=== PATIENT | male | born 1995 | race Caucasian/White ===

== ENCOUNTER → 2022-06-16 | Outpatient (CLI) | payer OTHER, SELFPAY ==
--- NOTE | 2022-06-16 16:00 | RAD_ITS ---
STUDY: X-RAY - LEFT KNEE REASON FOR EXAM: Male, 27 years old. Left Knee Pain TECHNIQUE: 4 view(s) of the knee. COMPARISON: None. FINDINGS: Normal visualized distal femur. Normal visualized proximal tibia and fibula. Normal proximal tibiofibular articulation. Normal medial femorotibial compartment. Normal lateral femorotibial compartment. Normal patellofemoral articulation. The soft tissue structures are unremarkable. RAD/Knee 4 or More Views IMPRESSION: Normal x-ray examination of the knee. Electronically Signed: Damir Parks MD, SHEELA at 8:08 EDT ,
== END | disposition home or self-care (01) ==
PROVIDERS: PCP Internal Medicine; Referring Provider Internal Medicine; Visit Provider Internal Medicine
DX: M25.562 Pain in left knee (principal)
CPT/HCPCS: 73564

== ENCOUNTER → 2022-07-12 | Outpatient (CLI) | payer OTHER, SELFPAY ==
--- NOTE | 2022-07-12 09:25 | MRI_ITS ---
EXAM: MR LEFT LOWER EXTREMITY WITHOUT INTRAVENOUS CONTRAST, KNEE CLINICAL INDICATION: rule out MM tear TECHNIQUE: Multiplanar and multisequence MR images of the left knee without intravenous contrast. This report was created using [employer] report generation technology. COMPARISON: X-ray 06/16/2022. FINDINGS: BONES/JOINTS: No fracture. No abnormal bone marrow signal. No synovial hypertrophy. No intra-articular body. EXTENSOR MECHANISM: Unremarkable. MEDIAL MENISCUS: Unremarkable. LATERAL MENISCUS: Unremarkable. MEDIAL CAPSULE/SUPPORTING STRUCTURES: Unremarkable. Intact. LATERAL CAPSULE/SUPPORTING STRUCTURES: Unremarkable. Intact. ANTERIOR CRUCIATE LIGAMENT: Unremarkable. Intact. POSTERIOR CRUCIATE LIGAMENT: Unremarkable. Intact. MUSCLES: Unremarkable. CARTILAGE: Fissuring of the medial femoral cartilage, best demonstrated on series 5 image 8. Cartilage is otherwise unremarkable. FLUID: Small joint effusion. OTHER SOFT TISSUES: Unremarkable. No popliteal cyst. MRI/Lower Ext Joint Only (Routine) IMPRESSION: 1. Small joint effusion. 2. Fissuring of the medial femoral cartilage. Electronically Signed: Gretchen Ojeda MD at 19:57 EDT Reading Location ID and State: [id number] / Tel , Service support ,
== END | disposition home or self-care (01) ==
LOC: MRI 09:24
PROVIDERS: PCP Internal Medicine; Referring Provider Orthopaedic Surgery Sports Medicine; Visit Provider Orthopaedic Surgery Sports Medicine
DX: S83.242A Other tear of medial meniscus, current injury, left knee, initial encounter (principal)
CPT/HCPCS: 73721

== ENCOUNTER 2022-07-28 15:19 | Outpatient (CLI) | payer OTHER, SELFPAY ==
[2022-07-28 16:51] LABS: ALB/GLOB Ratio 1.2 RATIO (0.9-2.4); AST(SGOT) 9 U/L (15-37); Absolute Lymphocyte Count 3.02 X10^3/uL (0.83-4.51); Absolute Neutrophil Count 5.5 X10^3/uL (2.0-7.7); Alanine Aminotransfer ALT/SGPT 28 U/L (16-61); Alkaline Phosphatase 73 U/L (45-117); Anion Gap 8 (5-15); BUN 19 mg/dL (7-18); BUN/Creat Ratio 17.9 RATIO (10-20); Basophil# 0.04 X10^3/uL; Basophil% 0.4 % (0-1); Calcium,Total 8.9 mg/dL (8.5-10.1); Chloride 102 mmol/L (98-107); Cholesterol 176 mg/dL (200); Creatinine, Serum 1.06 mg/dL (0.70-1.30); EST Glomerular Filtration Rate 88 mL/min (>60); Eosinophil# 0.13 X10^3/uL; Eosinophils% 1.3 % (0-5); Est Glom Filt Rate - Afr Amer 106 mL/min (>60); Globulin 3.2 g/dL (2.2-4.2); Glucose 96 mg/dL (74-106); Hematocrit 45.2 % (40-54); High Density Lipoprotein 36 mg/dL; Lymphocyte # 3.02 X10^3/ul (0.83-4.51); Lymphocyte % 31.2 % (19-41); Mean Corp Hgb Conc 33.2 g/dL (32-36); Mean Corpuscular Hgb 29.1 pg (27.0-32.0); Mean Corpuscular Volume 87.8 fL (80-94); Mean Platelet Vol. 10.3 fl (6.2-12.0); Monocyte# 0.89 X10^3/uL; Monocyte% 9.2 % (0-10); NRBC Flagged by Analyzer 0 % (0-5); Neutrophil # 5.53 X10^3/uL (2.7-7.7); Neutrophil % 57.2 % (47-70); Platelet Count 299 K/mm3 (150-450); Potassium 4.1 mmol/L (3.5-5.1); Protein, Total 7.2 g/dL (6.4-8.2); RBC Distribution Width CV 12.3 % (11.6-14.6); RBC Distribution Width SD 39.7 fl (35.1-43.9); Red Blood Count 5.15 M/mm3 (4.6-6.2); Sodium Level 137 mmol/L (136-145); Triglycerides 277 mg/dL; Very Low Density Lipoprotein 55 mg/dL (5-40); White Blood Count 9.7 K/mm3 (4.4-11.0)
== END 2022-07-28 23:59 | disposition home or self-care (01) ==
LOC: BIMLAB 15:20
PROVIDERS: PCP Internal Medicine; Visit Provider Internal Medicine
DX: K21.9 Gastro-esophageal reflux disease without esophagitis (principal); E66.9 Obesity, unspecified
CPT/HCPCS: 36415; 80053; 80061; 85025

== ENCOUNTER → 2023-08-28 | Outpatient (CLI) | payer OTHER, SELFPAY ==
--- NOTE | 2023-08-28 12:37 | RAD_ITS ---
STUDY: X-RAY CHEST REASON FOR EXAM: Male, 28 years old. chronic cough TECHNIQUE: PA and lateral views of the chest. COMPARISON: None. FINDINGS: The lungs are clear and expanded. There is no demonstrated pleural abnormality. Normal size heart. Normal mediastinum and ermias. Normal visualized pulmonary arteries. Normal visualized aortic arch and descending thoracic aorta. Normal visualized thoracic spine. Normal visualized ribs, clavicles, and shoulders. There is no demonstrated abnormality of the visualized soft tissue structures of the upper abdomen. RAD/Chest PA and Lateral IMPRESSION: Normal x-ray examination of the chest. Electronically Signed: Davin Vazquez MD at 18:57 EST ,
--- NOTE | 2023-08-29 05:49 | PFTCOMP_ITS ---
COMPLETE PULMONARY FUNCTION TEST INTERPRETATION Brief HPI: Patient is a 28-year-old male, currently under the care of Dr. Munoz, who presents to [facility] for complete pulmonary function tests secondary to diagnosis of cough. Respiratory therapist reports good effort and reproducible results. Interpretation: Forced expiration spirometry shows no large airways obstructive ventilatory defect with an FEV1 of 92% predicted. There is no significant bronchodilator response by strict ATS criteria. Spirograms are of fair quality and and do not plateau given exhalation of only 5 to 6 seconds. The respiratory flow volume loop shows decreased expiratory flow rates at high lung volumes consistent with small airways obstruction. Lung volumes by body plethysmography show a normal total lung capacity at 5.96 L, 90% predicted. All other lung volumes are within normal limits. Diffusion capacity by carbon monoxide is normal at 105% predicted. The airway resistance is normal. No previous pulmonary function tests were available for review. Impression: Grossly normal pulmonary function test with some subtle stigmata of small airways disease. Consider bronchoprovocation study if asthma is still suspected.
== END | disposition home or self-care (01) ==
LOC: PSN 12:35
PROVIDERS: PCP Internal Medicine; Referring Provider Internal Medicine; Visit Provider Internal Medicine
DX: R05.3 Chronic cough (principal)
CPT/HCPCS: 71046; 94060; 94726; 94729

== ENCOUNTER 2023-12-05 22:10 | Emergency (ER) | payer OTHER, SELFPAY ==
[2023-12-05 22:10] VITALS: BP 153/99; PULSE 85; RESP 15; TEMP 36.2; O2SAT 98; BMI 32.7
--- NOTE | 2023-12-05 22:59 | CT_ITS ---
INDICATION: headache EXAMINATION: CT BRAIN - CT Head or Brain W/O Contrast Injection TECHNIQUE: Multiple axial images were obtained of the head without intravenous contrast. A radiation dose optimization technique was used for this scan. IV Contrast dosage and agent: None. RADIATION DOSAGE (If Supplied By Facility): CTDIvol = ( 44.99 ) mGy, DLP = ( 880.47 ) mGycm COMPARISON: None. FINDINGS: BRAIN: No acute bleed. No edema. Alva-white matter differentiation is maintained. VENTRICLES AND SULCI: Not dilated. EXTRA-AXIAL: No hemorrhage, fluid collection, or mass. CALVARIUM / SKULL BASE: Unremarkable. FACE/SINUSES: Minimal mucosal thickening in the maxillary sinuses. SOFT TISSUES: Unremarkable. CT/Brain/Head without Contrast IMPRESSION: No acute abnormality. Electronically Signed: Brooke Julian MD at 23:57 EDT ,
[2023-12-05] MEDS: Metoclopramide 10 MG/2 ML Vial IV (23:23)
[2023-12-05] MEDS: 0.9% Normal Saline (1000mL) 1,000 ML 999 ML IV (23:23)
[2023-12-05] MEDS: DiphenhydrAMINE 50 MG/ML Syringe 25 MG IV (23:24)
[2023-12-05] MEDS: Ketorolac 30 MG/ML Syringe IV (23:25)
[2023-12-05 23:32] LABS: Absolute Lymphocyte Count 2.13 X10^3/uL (0.83-4.51); Absolute Neutrophil Count 5.6 X10^3/uL (2.0-7.7); Basophil# 0.06 X10^3/uL; Basophil% 0.7 % (0-1); Eosinophil# 0.12 X10^3/uL; Eosinophils% 1.4 % (0-5); Hematocrit 47.1 % (40-54); Hemoglobin 16.1 g/dL (13.0-16.5); Lymphocyte # 2.13 X10^3/ul (0.83-4.51); Mean Corp Hgb Conc 34.2 g/dL (32-36); Mean Corpuscular Hgb 29.7 pg (27.0-32.0); Mean Corpuscular Volume 86.7 fL (80-94); Mean Platelet Vol. 9.7 fl (6.2-12.0); Monocyte% 10.1 % (0-10); NRBC Flagged by Analyzer 0 % (0-5); Neutrophil # 5.64 X10^3/uL (2.7-7.7); Neutrophil % 63.5 % (47-70); Platelet Count 282 K/mm3 (150-450); RBC Distribution Width CV 12.4 % (11.6-14.6); RBC Distribution Width SD 39.6 fl (35.1-43.9); Red Blood Count 5.43 M/mm3 (4.6-6.2); White Blood Count 8.9 K/mm3 (4.4-11.0)
[2023-12-05 23:36] LABS: Erythrocyte Sedimentation Rate < 1 mm/hr (0-20)
[2023-12-05 23:52] LABS: AST(SGOT) 15 U/L (15-37); Alanine Aminotransfer ALT/SGPT 27 U/L (16-61); Albumin, Serum 4.1 g/dL (3.2-5.0); Alkaline Phosphatase 84 U/L (45-117); Anion Gap 3 (5-15); BUN 14 mg/dL (7-18); Bilirubin, Direct 0.13 mg/dL (0.00-0.30); CRP < 2.90 mg/L (0.0-3.0); Calcium,Total 8.9 mg/dL (8.5-10.1); Chloride 107 mmol/L (98-107); Creatinine, Serum 0.93 mg/dL (0.70-1.30); EST Glomerular Filtration Rate 101 mL/min (>60); Est Glom Filt Rate - Afr Amer 122 mL/min (>60); Estimated Creatinine Clearance 152.67 ml/min; Globulin 3.3 g/dL (2.2-4.2); Glucose 117 mg/dL (74-106); Lipase 30 U/L (13-75); Potassium 4.2 mmol/L (3.5-5.1); Protein, Total 7.4 g/dL (6.4-8.2); Sodium Level 139 mmol/L (136-145)
[2023-12-06 00:06] VITALS: BP 130/80; PULSE 96; RESP 12; O2SAT 97
--- NOTE | 2023-12-06 01:36 | EDS_ITS ---
HPI History of Present Illness Chief Complaint: Headache Informant: patient and family Narrative Narrative: Patient is a 28-year-old male with past medical history of GERD. He states for the past month he has noticed headache along the left jaw/religious region. He states there is no trauma prior to headache beginning and that is there most of the days but typically is controlled with Tylenol and/or Motrin. He reports that today he developed bouts of vomiting and after doing so his headaches seem to be slightly worse. He told family about this as he had not had a symptoms before and they advised him to come in for evaluation [facility] Medical History (Updated 12/06/23 @ 03:[address] Jalen Murphy DO) GERD (gastroesophageal reflux disease) Left knee pain Obesity (BMI 30.0-34.9) Osteoarthritis of left knee Tear of medial meniscus of left knee Home Medications ondansetron 4 mg disintegrating tablet 4 mg PO TID PRN nausea and vomiting #21 tabs 12/06/23 [Rx Last Taken Unknown] Allergy/AdvReac Type Severity Reaction Status Date / Time No Known Allergies Allergy Verified 12/05/23 22:14 Family History Grandfather Diabetes Sister Thyroid disorder Father COPD (chronic obstructive pulmonary disease) Surgical History (Updated 08/13/23 @ 13:[address] Sharlene Munoz MD) No pertinent past surgical history Social History (Updated 08/13/23 @ 13:[address] Sharlene Munoz MD) household members: spouse current occupational status: employed current occupation: industrial truck operator Smoking Status: Former smoker quit date: 09/07/13 pack-years: 5 Tobacco: How many years used: 5 alcohol intake: current alcohol intake frequency: a few times a month substance use type: does not use what type of physical activity do you participate in: none do you feel safe at home: Yes ROS ROS ED Constitutional Constitutional ED: Denies chills or fever(s) Eyes Eyes: Reports other Details: Negative photophobia ; Denies blurry vision, change in vision or diplopia ENT ENT ED: Denies sore throat Cardiovascular Cardiovascular: Denies chest pain Respiratory/Chest Respiratory/Chest: Denies cough or dyspnea Gastrointestinal Gastrointestinal: Reports nausea and vomiting; Denies abdominal pain or diarrhea Genitourinary Genitourinary ED: Denies dysuria Musculoskeletal Musculoskeletal: Denies myalgias Integumentary Denies rash Neurologic Neurologic: Reports headache(s); Denies paresthesias or weakness Hematologic/Lymphatic Hematologic/Lymphatic: Denies easy bleeding or easy bruising EXAM Physical Exam Const Vital Signs: 12/05/23 22:10 12/06/23 00:06 12/06/23 01:53 Temperature 97.2 F L 97.4 F L Temperature Source Temporal Pulse Rate 85 96 71 Respiratory Rate 15 12 18 Blood Pressure 153/99 H 130/80 H 123/84 H Blood Pressure Mean 117 96 97 Pulse Ox 98 97 97 Oxygen Delivery Method Room Air Room Air Positive well nourished and well developed General Appearance ED: well developed; Negative for pallor HEENT Reports moist mucous membranes HEENT Narrative: Head is normocephalic and atraumatic There is no pain with palpation over top of either mastoid There is no soft tissue changes to either ear to suggest erysipelas or malignant otitis externa No signs of tympanic membrane infection either 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 No obvious dental infection Eyes PERRL and EOMs intact bilaterally General Eye ED: Negative for scleral icterus Neck supple Neck Narrative: No nuchal rigidity or meningeal signs No carotid bruit Resp normal respiratory effort and clear to auscultation bilaterally Cardio regular rate and regular rhythm GI non-tender and non-distended GI Narrative: Abdomen is soft nontender and nondistended with hyperactive bowel sounds No voluntary guarding or rigidity or pulsatile mass Auscultation: hyperactive bowel sounds Palpation: soft Extremity normal to inspection Neuro oriented x3, CN's II-XII intact bilaterally and no sensory deficits noted Neuro Narrative: NIH stroke scale score of 0 Sensorium / Orientation: alert Motor Exam: strength 5/5 throughout Psych mental status grossly normal Skin no rashes or lesions noted, no wounds and skin turgor normal General Skin Exam: Negative for jaundice or pallor MDM MDM MDM Narrative Medical decision making narrative: Patient arrived to the ER slightly hypertensive but otherwise with stable vit als. He reported a headache almost daily for a month with no reported trauma and had a normal neurologic exam. However today there were new symptoms of nausea and vomiting. Differential diagnosis is for viral infection such as [place] or rotavirus versus biliary colic versus acute cholecystitis versus pancreatitis. There is also concern for temporal arteritis versus TMJ versus intracranial mass or bleed. Basic blood work was obtained which revealed no clinically significant findings going against acute kidney injury or electrolyte abnormality and as his inflammatory markers are normal this goes against temporal arteritis. CT scan revealed no acute cranial pathology. After IV fluids Toradol Benadryl Reglan patient reported resolution of his headache and had no further bouts of vomiting. On reevaluation his neurologic and remains normal as well as his abdominal exam remains soft and nonsurgical. Therefore with resolution of symptoms and overall negative workup he is otherwise safe for discharge. History & Record Review Discussion w/independent historian: Patient and Family Lab Data Attestation: I reviewed the patient's lab results. Labs: Laboratory Results - last 24 hr 12/05/23 23:20 WBC 8.9 RBC 5.43 Hgb 16.1 Hct 47.1 MCV 86.7 MCH 29.7 MCHC 34.2 RDW Std Deviation 39.6 RDW Coeff of Bart 12.4 Plt Count 282 MPV 9.7 Immature Gran % (Auto) 0.300 Neut % (Auto) 63.5 Lymph % (Auto) 24.0 [place] % (Auto) 10.1 H Eos % (Auto) 1.4 Baso % (Auto) 0.7 Absolute Neuts (auto) 5.6 Absolute Lymphs (auto) 2.13 Nucleated RBC % 0 ESR < 1 Sodium 139 Potassium 4.2 Chloride 107 Carbon Dioxide 29.0 Anion Gap 3 L BUN 14 Creatinine 0.93 Estim Creat Clear Calc 152.67 Est GFR (MDRD) Af Amer 122 Est GFR (MDRD) Non-Af 101 BUN/Creatinine Ratio 15.0 Glucose 117 H Calcium 8.9 Total Bilirubin 0.40 Direct Bilirubin 0.13 AST 15 ALT 27 Alkaline Phosphatase 84 C-React Prot Ext Range < 2.90 Total Protein 7.4 Albumin 4.1 Globulin 3.3 Lipase 30 Radiography Diagnostic Testing: Clinical Impression(s) from Imaging Studies Brain CT 12/05/23 22:59 IMPRESSION: No acute abnormality. Electronically Signed: Brooke Julian MD at 23:57 EDT , Discharge Plan Triage Chief Complaint: Headache ED Provider: Jalne Murphy Dx/Rx/DC Orders Clinical Impression: Cephalgia, Nausea & vomiting, TMJ arthralgia Instructions: ED Headache Unspecified, ED Vomiting (Adult) Prescriptions: New ondansetron 4 mg tablet,disintegrating 4 mg PO TID PRN (Reason: nausea and vomiting) Qty: 21 0RF Primary Care Provider: Sharlene Munoz Referrals: Sharlene Munoz MD [Primary Care Provider] - Disposition Disposition: Home, Self Care Discharge Date/Time: 12/06/23 01:54
[2023-12-06 01:53] VITALS: BP 123/84; PULSE 71; RESP 18; TEMP 36.3; O2SAT 97
== END 2023-12-06 01:54 | disposition home or self-care (01) ==
PROVIDERS: Emergency Provider Emergency Medicine; PCP Internal Medicine; Visit Provider Emergency Medicine
DX: R51.9 Headache, unspecified (principal); R11.2 Nausea with vomiting, unspecified; Z87.891 Personal history of nicotine dependence; M26.622 Arthralgia of left temporomandibular joint
CPT/HCPCS: 70450; 80048; 80076; 83690; 85025; 85652; 86140; 96361; 96374; 96375; 99283; J7030; A4216

== ENCOUNTER → 2024-01-04 | Outpatient (CLI) | payer SELFPAY ==
--- NOTE | 2024-01-04 15:53 | MRI_ITS ---
EXAM: MR HEAD WITHOUT AND WITH INTRAVENOUS CONTRAST CLINICAL INDICATION: New onset headache in the left temporal area. TECHNIQUE: Multiplanar and multisequence MR images of the brain were obtained without and with intravenous contrast. CONTRAST: 23 mL of IV Clariscan. COMPARISON: CT head without contrast 12/05/2023. FINDINGS: BRAIN AND EXTRA-AXIAL SPACES: Unremarkable. No intra- or extra-axial hemorrhage. No evidence of acute infarct. No intracranial mass or mass effect. There is preservation of the khan/white matter interface. Posterior fossa structures are unremarkable. Ventricles are appropriate for age. No hydrocephalus. Basal cisterns are patent. No abnormally enhancing lesions intra-axially and extra-axially. SELLA: Unremarkable. Normal sella turcica, pituitary gland, infundibular stalk, optic chiasm and hypothalamus. AUDITORY SYSTEM: Unremarkable. The internal auditory canals are patent. BONES/JOINTS: Unremarkable. No discrete lytic or blastic abnormalities. SINUSES: Unremarkable as visualized. Clear. MASTOID AIR CELLS: Unremarkable as visualized. Clear. ORBITS: Unremarkable as visualized. Both globes, extraocular muscles, optic nerves and retrobulbar fat appear unremarkable. VASCULATURE: Unremarkable as visualized. Normal flow voids in the major intracranial circulation. MRI/Brain W/WO Contrast IMPRESSION: Negative MRI brain without and with intravenous contrast. Electronically Signed: Guilherme Solorio MD at 10:31 EDT ,
== END | disposition home or self-care (01) ==
LOC: MRI 15:37
PROVIDERS: PCP Internal Medicine; Referring Provider Internal Medicine; Visit Provider Internal Medicine
DX: R51.9 Headache, unspecified (principal); G25.0 Essential tremor
CPT/HCPCS: 70553; A9575